=== PATIENT | male | born 1990 | race Caucasian/White ===

== ENCOUNTER 2020-03-28 12:13 | Emergency (ER) | payer SELFPAY ==
[~2020-03-28] VITALS: Ht 190.5 cm; Wt 84.8 kg
[2020-03-28 12:37] VITALS: BP 126/63; Ht 190.5 cm; Wt 84.8 kg
== END 2020-03-28 13:18 | disposition home or self-care (01) ==
LOC: ED 12:13
DX: Z20.828 Contact with and (suspected) exposure to other viral communicable diseases (principal)

== ENCOUNTER 2020-09-08 12:46 | Emergency (ER) | payer SELFPAY ==
[~2020-09-08] VITALS: Ht 190.5 cm; Wt 88.9 kg
[2020-09-08 12:55] VITALS: Ht 190.5 cm; Wt 88.9 kg
[2020-09-08 14:25] VITALS: BP 105/55
== END 2020-09-08 14:25 | disposition home or self-care (01) ==
LOC: ED 12:46
DX: S00.431A Contusion of right ear, initial encounter (principal); S09.8XXA Other specified injuries of head, initial encounter; F17.210 Nicotine dependence, cigarettes, uncomplicated; F90.9 Attention-deficit hyperactivity disorder, unspecified type; F12.10 Cannabis abuse, uncomplicated; Z98.890 Other specified postprocedural states; W01.0XXA Fall on same level from slipping, tripping and stumbling without subsequent striking against object, initial encounter; Y93.67 Activity, basketball; Y92.310 Basketball court as the place of occurrence of the external cause; Y99.8 Other external cause status
CPT/HCPCS: 99406